=== PATIENT | female | born 1960 | race Caucasian/White ===

== ENCOUNTER → 2024-10-27 11:52 | Outpatient (REF) | payer MEDICARE, OTHER, SELFPAY | LOC: PAVMRI 11:52 | PROVIDERS: ATTENDING PHYSICIAN Orthopaedic Surgery; FAMILY PHYSICIAN Family Medicine | DX: M25.562 Pain in left knee (principal) | CPT/HCPCS: 73721 ==

== ENCOUNTER → 2024-11-13 08:54 | Outpatient (REF) | payer MEDICARE, OTHER, SELFPAY ==
[2024-11-13 09:28] LABS: Hematocrit 43.3 % (37.0-47.0); Hemoglobin 14.3 g/dL (12.0-16.0); Mean Corp Hgb Conc. 33.0 g/dL (33.0-37.0); Mean Corpuscular Volume 96.7 fL (81.0-99.0); Nucleated Red Blood Cells % 0 %; Platelet Count 241 10^3/uL (130-400); Red Cell Dist. Width 12.6 % (11.5-14.5)
[2024-11-13 10:02] LABS: Blood Urea Nitrogen 17 mg/dl (7-17); Calcium 10.2 mg/dl (8.4-10.2); Carbon Dioxide 28 mmol/L (22-30); Chloride 105 mmol/L (98-107); Glucose 92 mg/dl (70-99); Potassium 4.8 mmol/L (3.5-5.1); Sodium 141 mmol/L (135-145); eGFR > 60.00
== END ==
LOC: WDC 08:54
PROVIDERS: ATTENDING PHYSICIAN Nurse Practitioner Adult Health; FAMILY PHYSICIAN Family Medicine; OTHER PHYSICIAN Orthopaedic Surgery; OTHER PHYSICIAN Pathology Anatomic Pathology & Clinical Pathology
DX: Z12.31 Encounter for screening mammogram for malignant neoplasm of breast (principal); Z01.818 Encounter for other preprocedural examination
CPT/HCPCS: 36415; 80048; 85025; 93005

== ENCOUNTER → 2025-01-20 13:30 | Outpatient (REF) | payer MEDICARE, OTHER, SELFPAY | LOC: RAD 13:30 | PROVIDERS: ATTENDING PHYSICIAN Orthopaedic Surgery; FAMILY PHYSICIAN Family Medicine | DX: M79.662 Pain in left lower leg (principal) | CPT/HCPCS: 93925; 93971 ==